=== PATIENT | male | born 1995 | race African-American/Black ===

== ENCOUNTER 2022-10-11 01:43 | Emergency (ER) | payer SELFPAY ==
[~2022-10-11] VITALS: Ht 180.3 cm; Wt 150.0 kg
[2022-10-11 01:55] VITALS: BP 128/105
[2022-10-11] MEDS ORDERED: KETOROLAC TROMETH 30 MG/ML 1ML VIAL IM ONE (03:15)
[2022-10-11 03:22] LABS: Basophils # (auto) 0 10 ^3/uL (0-0.2); Basophils % (auto) 0.2 % (0.0-2.0); Eosinophils # (auto) 0 10 ^3/uL (0-0.8); Eosinophils % (auto) 0.6 % (0.0-7.0); Hematocrit 44.7 % (41.0-53.0); Hemoglobin 14.6 g/dL (13.5-17.5); Lymphocytes # (auto) 2.8 10 ^3/uL (0.4-5.4); Lymphocytes % (auto) 41.7 % (10.0-50.0); Mean Corpuscular Hemoglobin 29.2 pg (28.0-32.0); Mean Corpuscular Hgb Conc. 32.6 g/dL (32.0-36.0); Mean Corpuscular Volume 89.4 fL (80.0-100.0); Monocytes # (auto) 0.5 10 ^3/uL (0-1.3); Monocytes % (auto) 7.4 % (0.0-12.0); Neutrophils # (auto) 3.3 10 ^3/uL (1.6-8.6); Neutrophils % (auto) 50.1 % (37.0-80.0); Nucleated Red Blood Cells % 0.1 %; Red Cell Distribution Width 13.6 % (11.8-14.3); White Blood Cell 6.6 10^3/uL (4.4-10.8)
[2022-10-11 03:40] LABS: INR 1.15 (0.9-1.15); Partial Thromboplastin Time 26.3 sec (24.6-33.4)
[2022-10-11 03:45] LABS: Albumin 4.5 g/dL (3.4-5.0); Calcium 8.8 mg/dL (8.5-10.1)
[2022-10-11 03:48] LABS: BUN/Creatinine Ratio 12.7; Bilirubin, Total 0.2 mg/dL (0.2-1.0); Total Protein 8.7 g/dL (6.4-8.2)
[2022-10-11] MEDS ORDERED: IOHEXOL 300 MG/ML 100ML BOTTLE IJ ONE (03:57)
== END 2022-10-11 08:01 | disposition home or self-care (01) ==
LOC: EDUNIT# 01:43 → EDBD 01:43 → ER 01:43
DX: F10.129 Alcohol abuse with intoxication, unspecified (principal); V89.2XXA Person injured in unspecified motor-vehicle accident, traffic, initial encounter; Y93.89 Activity, other specified; Y92.89 Other specified places as the place of occurrence of the external cause; Y99.8 Other external cause status
CPT/HCPCS: 36415; 70450; 71260; 72125; 74177; 80053; 80320; 82553; 83690; 84484; 85025; 85610; 85730; 99285; Q9967